=== PATIENT | female | born 1965 | race Caucasian/White ===

== ENCOUNTER → 2020-12-15 | Outpatient (CLI) | payer BC ==
[~2020-12-15] MED LIST: ATOR10 PO; ZESTORETIC 20-1 EAC1 PO
== END ==
LOC: LAB SHORT 13:44 → LAB 13:44
DX: R30.0 Dysuria (principal)
CPT/HCPCS: 87077; 87086; 87186

== ENCOUNTER → 2021-03-11 | Outpatient (CLI) | payer BC | END | disposition home or self-care (01) | LOC: LAB SHORT 10:12 → LAB 10:12 | DX: R30.0 Dysuria (principal) | CPT/HCPCS: 87086 ==